=== PATIENT | male | born 1990 | race Two or more races ===

== ENCOUNTER 2016-12-09 09:50 | Emergency (ER) | payer SELFPAY ==
[~2016-12-09] VITALS: Ht 170.2 cm; Wt 86.2 kg
[2016-12-09 10:00] VITALS: BP 127/68
[2016-12-09] MEDS ORDERED: EYE-STREAM OPHTH SOLUTION 120 ML BOTTLE. OS ONE (10:30)
[2016-12-09] MEDS ORDERED: FLUORESCEIN OPHTH TEST STRIP. OS ONE (10:30)
[2016-12-09] MEDS ORDERED: DIPHTH,PERTUSS(ACELL),TET TOX 0.5 ML DISP.SYRIN. VAX IM ONE (10:30)
[2016-12-09] MEDS ORDERED: TETRACAINE 0.5% OPHTH SOLUTION 4ML BOTTLE. OS ONE (10:30)
[2016-12-09] MEDS ORDERED: OFLO5DRO4 OS (10:49)
--- NOTE | 2016-12-09 10:49 | PHYS DOC ---
Past Medical History Past Medical History: No Pertinent History Past Surgical History: No Surgical History Alcohol Use: Occasionally Drug Use: None Adult General Chief Complaint Chief Complaint: FOREIGN BODY/EYES HPI HPI Patient is a 26 year old male presents emergency department stating that he was working outside at home this morning when he felt a piece of wood hit him in the eye. He states that he's washed his eye out but is still having left eye pain and discomfort. Patient is unsure when his last tetanus immunization occurred. Patient denies any visual difficulty. Patient denies any use of contact lenses. Review of Systems Review of Systems Constitutional: Denies fever or chills [] Eyes: Denies change in visual acuity, redness. C/o left eye pain and discomfort HENT: Denies nasal congestion or sore throat [] Respiratory: Denies cough or shortness of breath [] Cardiovascular: No additional information not addressed in HPI [] GI: Denies abdominal pain, nausea, vomiting, bloody stools or diarrhea [] : Denies dysuria or hematuria [] Musculoskeletal: Denies back pain or joint pain [] Integument: Denies rash or skin lesions [] Neurologic: Denies headache, focal weakness or sensory changes [] Endocrine: Denies polyuria or polydipsia [] Current Medications Current Medications Current Medications Medications (Trade) Dose Ordered Sig/Ngoc Start Time Stop Time Status Last Admin Dose Admin Balanced Salt Solution (Eye-Stream) 120 ml 1X ONCE 12/09/16 10:30 12/09/16 10:35 DC 12/09/16 10:39 120 ML Diphtheria/ Tetanus/Acell Pertussis (Boostrix) 0.5 ml ONCE ONCE 12/09/16 10:30 12/09/16 10:35 DC 12/09/16 10:40 0.5 ML Fluorescein Sodium (Ful-Ruthie) 1 strip 1X ONCE 12/09/16 10:30 12/09/16 10:35 DC 12/09/16 10:39 1 STRIP Tetracaine HCl (Tetracaine) 1 drop 1X ONCE 12/09/16 10:30 12/09/16 10:35 DC 12/09/16 10:39 1 DROP Allergies Allergies Allergies Coded Allergies Type Severity Reaction Last Updated Verified No Known Drug Allergies 12/09/16 No Physical Exam Physical Exam Constitutional: Well developed, well nourished, no acute distress, non-toxic appearance. [] HENT: Normocephalic, atraumatic, bilateral external ears normal, oropharynx moist, no oral exudates, nose normal. [] Eyes: PERRLA, EOMI, conjunctiva normal, no discharge. No foreign body noted in the left eye Neck: Normal range of motion, no tenderness, supple, no stridor. [] Cardiovascular:Heart rate regular rhythm, no murmur [] Lungs & Thorax: Bilateral breath sounds clear to auscultation [] Skin: Warm, dry, no erythema, no rash. [] Back: No tenderness Extremities: No tenderness, no cyanosis, no clubbing, ROM intact, no edema. [] Neurologic: Alert and oriented X 3, normal motor function, normal sensory function, no focal deficits noted. [] Psychologic: Affect normal, judgement normal, mood normal. [] Current Patient Data Vital Signs Vital Signs Date Time Temp Pulse Resp B/P (MAP) Pulse Ox O2 Delivery O2 Flow Rate FiO2 12/09/16 10:00 98.0 59 18 97 Room Air 98.0 EKG EKG [] Radiology/Procedures Radiology/Procedures [] Course & Med Decision Making Course & Med Decision Making Pertinent Labs and Imaging studies reviewed. (See chart for details) Eye exam completed with tetracaine placed into the left eye. Eyelid was inverted with no foreign body noted. Fluorescein was placed into the eye with uptake noted between the 10:00 and 11:00 area. Patient will be placed on eyedrops for corneal abrasion. Recommended following up with an gas dispatcher in the next 24 hours. He'll be provided with Dr. Gonsalves's name and access number. Patient will be discharged home in stable condition with recommendations for Tylenol and ibuprofen for pain and discomfort. Also recommended keeping the lights turned out low as well as wearing sunglasses when out in the sun to help protect the eye from pain and discomfort. Patient agrees with discharge instructions treatment regimens and follow-up recommendations. Signs symptoms to return back to emergency department been provided. [] Dragon Disclaimer Dragon Disclaimer This electronic medical record was generated, in whole or in part, using a voice recognition dictation system. Departure Departure Impression: Primary Impression: Corneal abrasion, left Disposition: 01 HOME, SELF-CARE Condition: STABLE Referrals: NO PCP (PCP) MAGGIE GONSALVES MD Patient Instructions: Eye - Corneal Abrasion, [id number] Additional Instructions: Activity as tolerated. Tylenol or ibuprofen for pain and discomfort. Eyedrops as prescribed. Keep the eye from heavy light exposure by wearing sunglasses when out and this son. Keeping the lights turned down low at home. Follow-up with gas dispatcher in the next 24 hours. Return back to emergency department sign symptoms of become worse. Scripts Ofloxacin (OFLOXACIN) 10 Ml Drops 1 DROP OS QID, #[address] eye drops in the left eye for the next 7 days Prov: FRANCISCO LOU APRN 12/09/16 FRANCISCO LOU APRN Dec 09, 2016 10:49
== END 2016-12-09 10:57 | disposition home or self-care (01) ==
LOC: ER 09:50
DX: S05.02XA Injury of conjunctiva and corneal abrasion without foreign body, left eye, initial encounter (principal); W22.8XXA Striking against or struck by other objects, initial encounter; Y93.89 Activity, other specified; Y99.8 Other external cause status; Y92.89 Other specified places as the place of occurrence of the external cause
CPT/HCPCS: 90471; 90715; 99283-25

== ENCOUNTER → 2021-01-02 | Outpatient (CLI) | payer OTHER ==
[~2021-01-02] MED LIST: OFLO5DRO4 OS
== END ==
LOC: LAB 15:14
PROVIDERS: ATTEND Physician Assistant
DX: L98.9 Disorder of the skin and subcutaneous tissue, unspecified (principal); B96.89 Other specified bacterial agents as the cause of diseases classified elsewhere; B95.62 Methicillin resistant Staphylococcus aureus infection as the cause of diseases classified elsewhere
CPT/HCPCS: 87071; 87075; 87077